=== PATIENT | female | born 1940 | race Hispanic/Latino ===

== ENCOUNTER 2024-07-08 14:44 | Emergency (ER) | payer MEDICARE ==
[~2024-07-08] VITALS: Ht 149.9 cm; Wt 52.6 kg
[~2024-07-08 14:44] MED LIST: TOPROL XL25 MG PO
[2024-07-08 15:18] VITALS: PULSE 88; RESP 18; TEMP 98.4; O2SAT 96
== END 2024-07-08 18:42 | disposition home or self-care (01) ==
LOC: ER 15:19
DX: M54.2 Cervicalgia (principal); M54.50 Low back pain, unspecified; M79.18 Myalgia, other site; I10 Essential (primary) hypertension; E78.5 Hyperlipidemia, unspecified
CPT/HCPCS: 70450; 72125; 99283

== ENCOUNTER → 2024-12-17 | Outpatient (REF) | payer MEDICARE | LOC: DX 08:27 | PROVIDERS: ATTEND Nurse Practitioner Primary Care | DX: M81.0 Age-related osteoporosis without current pathological fracture (principal) | CPT/HCPCS: 77080 ==